=== PATIENT | female | born 1960 | race Caucasian/White ===

== ENCOUNTER 2017-12-25 20:27 | Emergency (ER) | payer BC ==
[~2017-12-25] VITALS: Ht 157.5 cm; Wt 95.7 kg
[2017-12-25 20:56] LABS: HEMATOCRIT 38.9 % (36.0-46.0); HEMOGLOBIN 13.3 G/DL (11.9-15.5); MCH 30.2 PG (29.0-34.0); MCHC 34.2 G/DL (30.0-36.0); MCV 88.4 FL (83-99); PLATELET COUNT 387 K/uL (156-360); RBC DIS.WIDTH-CV 12.3 % (11.8-14.6); RBC DIS.WIDTH-SD 39.6 % (39-53); WHITE BLOOD COUNT 10.7 K/uL (4.1-10.2)
[2017-12-25 21:04] LABS: CHLORIDE 104 mEq/L (99-109); POTASSIUM 3.6 mEq/L (3.7-5.4); SODIUM 142 mEq/L (136-147)
[2017-12-25 21:06] LABS: GLUCOSE 114 mg/dL (70-99)
[2017-12-25 21:10] LABS: CREATININE 0.7 mg/dL (0.6-1.3); GFR ESTIMATE (CALCULATED) > 59 mL/min/; UREA NITROGEN (BUN) 11 mg/dL (9-23)
[2017-12-25 21:18] LABS: TROP-I INTERPRETATION NEGATIVE; TROPONIN-I < 0.01 ng/mL (0.0-0.30)
[2017-12-25] MEDS ORDERED: ELIQUIS5 MG PO (21:48)
[2017-12-25 22:16] VITALS: BP 112/60
== END 2017-12-25 22:00 | disposition home or self-care (01) ==
LOC: EME → EDBD 20:27 → EME 22:00
DX: I48.91 Unspecified atrial fibrillation (principal); I48.92 Unspecified atrial flutter; R07.89 Other chest pain; I10 Essential (primary) hypertension; E78.5 Hyperlipidemia, unspecified
CPT/HCPCS: 71046; 80048; 84484; 85027; 93005; 99281; 99285